=== PATIENT | female | born 1985 | race Two or more races ===

== ENCOUNTER 2022-01-30 13:30 | Inpatient (IN) | payer OTHER ==
[~2022-01-30] VITALS: Ht 162.6 cm; Wt 4.1 kg
[2022-02-15] MEDS ORDERED: SYNTHROID75 MCG (06:57)
[2022-02-15] MEDS ORDERED: PRENATAL CAPLE1 EAC1 (06:59)
[2022-02-15] MEDS ORDERED: OMEGA-31000 MG (07:00)
[2022-02-15] MEDS ORDERED: VITAMIN C500 M6 (07:00)
[2022-02-15] MEDS ORDERED: SELENIUM100 MCG (07:01)
[2022-02-15] MEDS ORDERED: MAGNESIUM200 MG (07:01)
[2022-02-18] MEDS ORDERED: OXYC1TAB9 PO (10:41)
[2022-02-18] MEDS ORDERED: KETO10TA2 PO (10:41)
== END 2022-02-18 10:57 | disposition home or self-care (01) | DRG 788 ==
LOC: OB/GYN 02-13 13:30 → SURG-SUITE 02-15 05:14 → LDR 02-15 05:14 → SURG-SUITE 02-15 12:07
PROVIDERS: ADMIT Obstetrics & Gynecology; ATTEND Obstetrics & Gynecology
PROC: 4A1HXCZ Monitoring of Products of Conception, Cardiac Rate, External Approach (ICD-10-PCS; 2022-02-15)
PROC: 10D00Z1 Extraction of Products of Conception, Low, Open Approach (ICD-10-PCS; principal; 2022-02-15 19:00)
DX: O62.0 Primary inadequate contractions (principal); O36.63X0 Maternal care for excessive fetal growth, third trimester, not applicable or unspecified; Z3A.40 40 weeks gestation of pregnancy; Z37.0 Single live birth; Z20.822 Contact with and (suspected) exposure to COVID-19

== ENCOUNTER 2024-07-04 15:36 | Emergency (ER) | payer OTHER ==
[~2024-07-04] VITALS: Ht 162.6 cm; Wt 80.3 kg
[~2024-07-04 15:36] MED LIST: KETO10TA2 PO; MAGNESIUM200 MG; OMEGA-31000 MG; OXYC1TAB9 PO; PRENATAL CAPLE1 EAC1; SELENIUM100 MCG; SYNTHROID75 MCG; VITAMIN C500 M6
[2024-07-04 16:48] LABS: HEMATOCRIT 33.5 % (36.0-45.00); HEMOGLOBIN 11.5 g/dL (12.0-15.00); MEAN CELL VOLUME 88.2 fL (80.00-100.00); MEAN CORPUSCULAR HEMOGLOBIN 30.4 pg (27.00-32.0); MEAN CORPUSCULAR HGB CONC 34.5 g/dl (32.0-36.0); PLATELET COUNT 287 K/uL (150-450); RED BLOOD COUNT 3.79 M/uL (4.00-6.00); RED CELL DISTRIBUTION WIDTH 13.2 % (11.5-14.5)
[2024-07-04 17:06] LABS: INR 1.01; PARTIAL THROMBOPLASTIN TIME 24.2 SECONDS (22.0-34.0)
[2024-07-04 17:41] LABS: CALCIUM 8.6 mg/dL (8.5-10.1); CREATININE SERUM 0.71 mg/dL (0.55-1.02); GFR 92.13; POTASSIUM 3.34 mEq/L (3.5-5.1)
[2024-07-04] MEDS ORDERED: KETOROLAC TROMETHAMINE 30 MG VIAL IM ONE (18:45)
[2024-07-04] MEDS ORDERED: KETOROLAC TROMETHAMINE 30 MG VIAL ONE (18:51)
== END 2024-07-04 19:14 | disposition home or self-care (01) ==
LOC: ER 15:37
PROVIDERS: General Practice
DX: O03.9 Complete or unspecified spontaneous abortion without complication (principal); Z91.048 Other nonmedicinal substance allergy status

== ENCOUNTER 2025-09-03 09:45 | Inpatient (IN) | payer OTHER ==
[~2025-09-03] VITALS: Ht 162.6 cm; Wt 90.7 kg
[2025-09-03 12:25] LABS: BASO % 0.6 % (0.1-1.2); EOS # 0.04 (0.04-0.54); EOS % 0.7 % (0.7-7.0); LYMPH # 1.13 (1.18-3.74); LYMPH % 20.8 % (19.3-53.1); MEAN PLATELET VOLUME 10.60 fl (9.4-12.4); MONO # 0.51 (0.24-0.82); MONO % 9.4 % (4.7-12.5); NEUT # 3.70 (1.56-6.13); NEUT % 68.1 % (34.0-71.1); RED CELL DISTRIBUTION WIDTH 13.3 % (11.6-14.4)
[2025-09-03 12:44] LABS: INR 0.96
[2025-09-03 13:14] LABS: ALT/SGPT 25.0 U/L (12-78); AST/SGOT 25.0 U/L (15-37); BILIRUBIN TOTAL 0.41 mg/dL (0.3-1.2); BUN CREA RATIO 10.0 (7.0-25.0); CREATININE SERUM 0.58 mg/dL (0.55-1.02); GFR 115.73; GLOBULINA 3.4 G/DL (2.4-3.5); GLUCOSE FASTING 92.0 mg/dL (65-100); OSMOLALITY SERUM 279.0 MOSM/KG (275-295)
[2025-09-08 06:42] VITALS: BP 124/81
[2025-09-08] MEDS ORDERED: CEFAZOLIN SODIUM 1,000 MG VIAL ONE (07:44)
[2025-09-08] MEDS ORDERED: OXYTOCIN 10 UNITS/ML VIAL ONE ×2 (07:44→12:54)
[2025-09-08] MEDS ORDERED: CITRIC ACID/SODIUM CITRATE 30 ML BLIST.PACK PO ONE (07:45)
[2025-09-08] MEDS ORDERED: ERYTHROMYCIN BASE OPHT 1GM EACH TUBE OP ONE (07:51)
[2025-09-08] MEDS ORDERED: MORPHINE SULFATE 4 MG/ML VIAL IV PRN (09:30)
[2025-09-08] MEDS ORDERED: RINGERS SOLUTION,LACTATED 1,000 ML IV SCH (09:30)
[2025-09-08] MEDS ORDERED: OXYTOCIN 1,000 ML IV ONE (09:45)
[2025-09-08] MEDS ORDERED: KETOROLAC TROMETHAMINE 30 MG VIAL IV SCH (12:00)
[2025-09-08] MEDS ORDERED: ONDANSETRON HCL 2 MG/ML VIAL IV SCH (12:00)
[2025-09-08] MEDS ORDERED: ACETAMINOPHEN 500 MG GEL..CAP PO SCH (12:00)
[2025-09-08] MEDS ORDERED: KETOROLAC TROMETHAMINE 30 MG VIAL ONE (12:46)
[2025-09-08 14:00] VITALS: BP 137/85
[2025-09-08 16:43] VITALS: BP 127/77
[2025-09-08] MEDS ORDERED: SIMETHICONE 125 MG CAPSULE PO SCH (17:00)
[2025-09-08] MEDS ORDERED: GABAPENTIN 300 MG CAPSULE PO SCH (17:00)
[2025-09-08 18:45] LABS: BASO % 0.4 % (0.1-1.2); EOS # 0.01 (0.04-0.54); EOS % 0.1 % (0.7-7.0); LYMPH # 1.21 (1.18-3.74); LYMPH % 15.1 % (19.3-53.1); MEAN PLATELET VOLUME 10.70 fl (9.4-12.4); MONO # 0.62 (0.24-0.82); MONO % 7.8 % (4.7-12.5); NEUT # 6.10 (1.56-6.13); NEUT % 76.3 % (34.0-71.1); RED CELL DISTRIBUTION WIDTH 13.7 % (11.6-14.4)
[2025-09-08 20:45] VITALS: BP 123/78
[2025-09-09] VITALS: BP 100/62
[2025-09-09 06:56] LABS: BASO % 0.7 % (0.1-1.2); EOS # 0.04 (0.04-0.54); EOS % 0.6 % (0.7-7.0); LYMPH # 1.16 (1.18-3.74); LYMPH % 16.9 % (19.3-53.1); MEAN PLATELET VOLUME 10.70 fl (9.4-12.4); MONO # 0.62 (0.24-0.82); MONO % 9.1 % (4.7-12.5); NEUT # 4.96 (1.56-6.13); NEUT % 72.4 % (34.0-71.1); RED CELL DISTRIBUTION WIDTH 13.6 % (11.6-14.4)
[2025-09-09 08:00] VITALS: BP 121/82
[2025-09-09] MEDS ORDERED: KETOROLAC TROMETHAMINE 10 MG TABLET PO SCH (08:00)
[2025-09-09] MEDS ORDERED: OxyCODONE HCL 5 MG TABLET (ROXICODONE) PO PRN (08:00)
[2025-09-09] MEDS ORDERED: DOCUSATE SODIUM 100MG CAP PO SCH (09:00)
[2025-09-09] MEDS ORDERED: IRON FUM,PS/FOLIC/BCOMP,C NO.9 1 CAP CAPSULE PO SCH (09:00)
[2025-09-09 17:08] VITALS: BP 126/80
[2025-09-10] VITALS: BP 119/72
[2025-09-10 08:54] VITALS: BP 124/80
== END 2025-09-10 13:53 | disposition home or self-care (01) | DRG 788 ==
LOC: O/R 09-08 07:00 → OB/GYN 09-08 09:45
PROVIDERS: ADMIT Obstetrics & Gynecology; ATTEND Obstetrics & Gynecology
PROC: 4A1HXCZ Monitoring of Products of Conception, Cardiac Rate, External Approach (ICD-10-PCS; 2025-09-08)
PROC: 10D00Z1 Extraction of Products of Conception, Low, Open Approach (ICD-10-PCS; principal; 2025-09-08 15:00)
DX: O34.211 Maternal care for low transverse scar from previous cesarean delivery (principal); Z3A.38 38 weeks gestation of pregnancy; Z37.0 Single live birth